=== PATIENT | male | born 1995 | race Caucasian/White ===

== ENCOUNTER 2020-11-19 07:56 | Outpatient (REF) | payer OTHER, SELFPAY ==
--- NOTE | 2020-11-19 07:57 | MR_ITS ---
EXAMINATION: MR SHOULDER WITHOUT CONTRAST, RIGHT CLINICAL INFORMATION: Pain in right shoulder COMPARISON: None TECHNIQUE: MRI of the shoulder without contrast was performed on a high-field scanner. FINDINGS: ROTATOR CUFF: Intact. No muscle atrophy or fatty infiltration. BICEPS: Normal. CORACOACROMIAL ARCH: The undersurface of the acromion is curved with no subacromial spur. The acromioclavicular joint is normal. LABRUM/CAPSULE: Normal. GLENOHUMERAL JOINT/MARROW: Normal. MR/MR shoulder RT wo con IMPRESSION: Normal MRI of the right shoulder.
== END 2020-11-19 07:57 | disposition home or self-care (01) ==
LOC: HO.MRI 07:56
PROVIDERS: Visit Provider Nurse Practitioner Family
DX: G89.29 Other chronic pain (principal); M25.511 Pain in right shoulder
CPT/HCPCS: 73221

== ENCOUNTER 2020-12-08 14:00 | Outpatient (RCR) | payer OTHER, SELFPAY ==
--- NOTE | 2020-10-20 15:05 | MHC.PT.EP ---
[facility] [place] Office [place] Office [place] Office [address] Kezia Lazcano [address] [phone] F: [phone] F: [phone] F: [phone] F: [phone] Physical Therapy Plan of Care Date of Evaluation: 10/20/20 Date of Surgery: n/a Diagnosis: R Shoulder Pain, R ankle/foot Assessment: Patient is a 25 year old R handed male who presents with s/s consistent with ankle, shoulder pain related to separate injuries about 2.5-3 years prior while in [place]. He works with daily job demands including [place]/[employer]. Patient past medical history includes L labral tear/surgery. Current impairments include pain, ROM, strength, activity tolerance and functional mobility. Functional limitations include decreased ability to run, perform push up and sit ups, exercise/lift, perform higher level activities, and perform weight bearing activities.. Patient is motivated with good rehab potential. Skilled PT will address impairments and functional limitations in order to achieve goals. Frequency and Duration: The patient will be seen 2x/week for 5 weeks Short Term Goals: I with HEP - 2 weeks Gastroc/PF strength 4/5 - 3 weeks Shoulder strength 4/5 or better grossly - 3 weeks Emergency Department Goals: pain free jogging > 2 miles - 4 weeks gastroc girth within .5 cm of even - 5 weeks SPADI 10/130 or better - 5 weeks Treatment Plan: Modalities to reduce pain, spasms and effusion. Manual therapy to restore motion and function. Therapeutic exercise to improve strength and flexibility. Neuromuscular re-education for posture and balance. Therapeutic activities to return to functional activities of daily living. Please sign and return to therapist. Thank you for your referral.
--- NOTE | 2021-02-01 13:10 | MHC.PT.DC ---
[facility] [place] Office [place] Office [place] Office [address] Kezia Lazcano [address] [phone] F: [phone] F: [phone] F: [phone] F: [phone] Physical Therapy Discharge Report Diagnosis: R Shoulder Pain, R ankle/foot Date of Surgery: n/a Date of Evaluation: 10/20/20 Date of Discharge: 12/21/20 Treatments to Date: 7 Cancellations to Date: No Shows to Date: Discharge Status: Independent with HEP Discharge Summary: pt had significant soreness after last visit. we resumed to lessen to level of DOMS. we will assess and discern next visit to continue (if improvement is noted) or d/c. After ^^ visit, he was unable to attend. He is on good HEP and appropriate for d/c as progress had plateaued. Electronically signed by: Troy Mishra PT Please sign and return to therapist. Thank you for your referral.
== END 2021-02-01 13:21 | disposition home or self-care (01) ==
LOC: HO.PTCHIC 14:00
PROVIDERS: PCP Nurse Practitioner Family; Visit Provider Nurse Practitioner Family
DX: M21.6X1 Other acquired deformities of right foot (principal); M21.211 Flexion deformity, right shoulder
CPT/HCPCS: 97110; 97112; 97140; 97161